=== PATIENT | male | born 1975 | race African-American/Black ===

== ENCOUNTER 2018-07-13 11:23 | Emergency (ER) | payer SELFPAY ==
--- NOTE | 2018-07-13 11:46 | ED ---
HPI Diabetic - HPI Summary HPI Summary: A 43 y/o M with DM type I presents to ED with c/o elevated glucose for unknown duration. He has not had his insulin in approximately a week. Per friend, pt is from [place] and arrived in [place] two days ago. He was having difficulty with his medical care there, so he came to [place]. Associated sx: n/v, dry mouth, frequency, excess hunger. He denies fever, pain, pedal edema. He has a cough but has had a cold recently that is almost resolved. - History Of Current Complaint Chief Complaint: EDDiabeticProb Time Seen by Provider: 07/13/18 11:36 Hx Obtained From: Patient, Family/Tub Puller Onset/Duration: Still Present Timing: Constant Severity Initially: Moderate Severity Currently: Moderate Character: Lethargic Aggravating: Non-compliant Associated Signs & Symptoms: Nausea, Polyphagia, Vomiting Related History: DM I - Allergies/Home Medications Allergies/Adverse Reactions: Allergies Allergy/AdvReac Type Severity Reaction Status Date / Time No Known Allergies Allergy Verified 07/13/18 11:30 PMH/Surg Hx/FS Hx/Imm Hx Previously Healthy: No Endocrine/Hematology History: Reports: Hx Diabetes Denies: Hx Anticoagulant Therapy, Hx Thyroid Disease Cardiovascular History: Denies: Hx Hypertension, Hx Pacemaker/ICD Respiratory History: Denies: Hx Asthma, Hx Chronic Obstructive Pulmonary Disease (COPD) History: Denies: Hx Renal Disease Musculoskeletal History: Reports: Other Musculoskeletal History - TRAUMA Neurological History: Reports: Other Neuro Impairments/Disorders - HEAD TRAUM Denies: Hx Dementia, Hx Seizures Psychiatric History: Denies: Hx Substance Abuse - Immunization History Date of Tetanus Vaccine: 02/04/2012 Infectious Disease History: No Infectious Disease History: Denies: Hx Hepatitis, Hx Human Immunodeficiency Virus (HIV), Traveled Outside the [place] in Last 30 Days - Family History Known Family History: Positive: Hypertension, Diabetes - Social History Occupation: Unemployed Lives: Dormitory/Roommates - friend Alcohol Use: Intoxiated Alcohol Amount: FORMER Hx Substance Use: No Substance Use Type: Reports: None Substance Use Comment - Amount & Last Used: crack, suspected today per police Hx Tobacco Use: Yes Smoking Status (MU): Heavy Every Day Tobacco Smoker Review of Systems Positive: Other - pos: lethargic. Negative: Fever ENT: Other - pos: dry mouth Positive: Vomiting, Nausea, Other - excess hunger Positive: frequency Negative: Edema All Other Systems Reviewed And Are Negative: Yes Physical Exam - Summary Physical Exam Summary: VITAL SIGNS: Reviewed. GENERAL: Patient is a well-developed and nourished MALE who is lying comfortable in the stretcher. Patient is not in any acute respiratory distress. HEAD AND FACE: No signs of trauma. No ecchymosis, hematomas or skull depressions. No sinus tenderness. EYES: PERRLA, EOMI x 2, No injected conjunctiva, no nystagmus. EARS: Hearing grossly intact. Ear canals and tympanic membranes are within normal limits. MOUTH: Dry oral mucosa. NECK: Supple, trachea is midline, no adenopathy, no JVD, no carotid bruit, no c- spine tenderness, neck with full ROM. CHEST: Symmetric, no tenderness at palpation LUNGS: Clear to auscultation bilaterally. No wheezing or crackles. CVS: Regular rate and rhythm, S1 and S2 present, no murmurs or gallops appreciated. ABDOMEN: Soft, non-tender. No signs of distention. No rebound, no guarding, and no masses palpated. Bowel sounds are normal. EXTREMITIES: FROM in all major joints, no edema, no cyanosis or clubbing. NEURO: Alert and oriented x 3. No acute neurological deficits. Speech is normal and follows commands. SKIN: Dry and warm Triage Information Reviewed: Yes Vital Signs On Initial Exam: Initial Vitals Temp Pulse Resp BP Pulse Ox 97.5 F 111 20 103/74 98 07/13/18 11:26 07/13/18 11:26 07/13/18 11:26 07/13/18 11:26 07/13/18 11:26 Vital Signs Reviewed: Yes Diagnostics - Vital Signs Vital Signs Temp Pulse Resp BP Pulse Ox 07/13/18 11:26 97.5 F 111 20 103/74 98 - Laboratory Result Diagrams: 07/13/18 12:21 07/13/18 12:21 Lab Statement: Any lab studies that have been ordered have been reviewed, and results considered in the medical decision making process. - Radiology CXR Radiology Interpretation Completed By: Radiologist Summary of Radiographic Findings: IMPRESSION: #. Stigmata of probable obstructive lung disease. No acute pulmonary or cardiac process evident. ED provider has reviewed this report. - EKG 1217 Cardiac Rate: NL - 82 bpm EKG Rhythm: Sinus Rhythm Summary of EKG Findings: No ST elevation, nml axis. Re-Evaluation - Re-Evaluation 1 Re-Evaluation Time: 14:22 Change: Improved Comment: POC glucose is 154. Pt is feeling better. Diabetic Course/Dx - Course Assessment/Plan: This patient is a 43-year-old male who presents to the emergency department with a chief complaint of having high blood sugars. He reports that he is supposed to be taking insulin however he is not taking any medications at this time. Blood work without any significant abnormality except for glucose of 404. In the ED course the patient was given IV fluids approximately 2 L and 12 units of insulin. At this time, rechecked the blood sugar and it is only 154. The patient is feeling better. He will be discharged home with follow-up with primary care physician. He is going to be referred to [facility]. He will be given a prescription for Lantus 30 units daily. I discussed all the findings and test results with the patient. Patient was instructed to return to the emergency room immediately if any of the symptoms return or worsens. Plan of care was discussed with the patient and understands and agrees. All questions were answered to patient satisfaction. There were no further complaints or concerns. Lung exam before discharge: CTA B/ L. Good air exchange. No wheezing or crackles heard. CVS: S1 and S2 present. No murmurs appreciated. Patient is alert and oriented x 3. Patient is hemodynamically stable. Patient will be discharged home with follow up PCP in the next 2-3 days. - Diagnoses Differential Dx: Diabetic Ketoacidosis, Gestational Diabetes, Hyperglycemia Provider Diagnoses: Uncontrolled diabetes mellitus Discharge - Sign-Out/Discharge Documenting (check all that apply): Patient Departure - D/C Patient Received Moderate/Deep Sedation with Procedure: No - Discharge Plan Condition: Stable Disposition: HOME Prescriptions: Lantus(*) 30 units SUBCUT DAILY #1 vial Patient Education Materials: Insulin Glargine (By injection), Diabetic Hyperglycemia (ED) Referrals: Mark Anthony Burris MD [Primary Care Provider] - [facility] [Outside] - 1 Day Additional Instructions: Follow up at [facility] tomorrow. RETURN TO THE ED FOR ANY WORSENING OR NEW SYMPTOMS. - Billing Disposition and Condition Condition: STABLE Disposition: Home - Attestation Statements Document Initiated by Scribe: Yes Documenting Scribe: Sherrill Morales Provider For Whom Julianna is Documenting (Include Credential): Dr. Shayne Parker MD Scribe Attestation: I, Sherrill Morales, scribed for Dr. Shayne Parker MD on 07/13/18 at 1831. Scribe Documentation Reviewed: Yes Provider Attestation: The documentation as recorded by the Sherrill redman accurately reflects the service I personally performed and the decisions made by me, Dr. Shayne Parker MD Status of Scribe Document: Viewed
[2018-07-13 12:31] LABS: ABS Basophils 0.1 10^3/ul (0-0.2); ABS Eosinophils 0.1 10^3/ul (0-0.6); ABS Lymphocytes 1.5 10^3/ul (1.0-4.8); ABS Monocytes 0.4 10^3/ul (0-0.8); ABS Neutrophils 4.6 10^3/ul (1.5-7.7); ABS Nucleated RBC 0 10^3/ul; Eosinophil % 0.8 %; Hematocrit 51 % (42-52); Hemoglobin 16.7 g/dl (14.0-18.0); Mean Corpuscular HGB Conc 33 g/dl (31-36); Mean Corpuscular Hemoglobin 28 pg (27-31); Mean Corpuscular Volume 86 fL (80-94); Mean Platelet Volume 8.6 fL (7.4-10.4); Nucleated Red Blood Cells % 0; Platelet Count 278 10^3/ul (150-450); Red Blood Count 5.94 10^6/ul (4.00-5.40); Red Cell Distribution Width 16 % (10.5-15); White Blood Count 6.7 10^3/ul (3.5-10.8)
[2018-07-13 12:48] LABS: ALT 36 U/L (7-52); AST 17 U/L (13-39); Albumin 4.2 g/dL (3.2-5.2); Albumin/Globulin Ratio 1.4 (1-3); Alkaline Phosphatase 101 U/L (34-104); Anion Gap 8 mmol/L (2-11); BUN/Creatinine Ratio 14.8 (8-20); Blood Urea Nitrogen 16 mg/dL (6-24); C Reactive Protein 5.41 mg/L (<8.01); CO2 Carbon Dioxide 29 mmol/L (22-32); Calcium 9.7 mg/dL (8.6-10.3); Chloride 99 mmol/L (101-111); Creatine Kinase 149 U/L (10-223); EGFR African American 89.9 (>60); EGFR Non-African American 74.3 (>60); Globulin 3.1 g/dL (2-4); Glucose 404 mg/dL (70-100); Magnesium 2.2 mg/dL (1.9-2.7); Potassium 4.2 mmol/L (3.5-5.0); Sodium 136 mmol/L (135-145); Total Protein 7.3 g/dL (6.4-8.9)
[2018-07-13] MEDS ORDERED: Insulin REGULAR(*) 1 UNITS UNIT IV PUSH ONE (13:16)
[2018-07-13] MEDS: NS 0.9% 1000 ML** 2,000 ML IV ONE (13:27)
[2018-07-13 13:32] LABS: Alcohol < 10 mg/dL (<10)
[2018-07-13 14:46] VITALS: BP 106/70
== END 2018-07-13 14:46 | disposition home or self-care (01) ==
LOC: ED 11:23
DX: E10.65 Type 1 diabetes mellitus with hyperglycemia (principal); Z79.4 Long term (current) use of insulin; R11.2 Nausea with vomiting, unspecified; R63.2 Polyphagia; F17.200 Nicotine dependence, unspecified, uncomplicated
CPT/HCPCS: 36415; 71045; 80053; 80320; 82550; 83605; 83735; 85025; 86140; 93005; 96361; 96374; 99283; G0480

== ENCOUNTER 2018-08-25 00:33 | Emergency (ER) | payer MEDICAID ==
[2018-08-25] MEDS ORDERED: NS 0.9% 1000 ML** 2,000 ML IV ONE (01:21)
--- NOTE | 2018-08-25 01:22 | ED ---
HPI Diabetic - HPI Summary HPI Summary: A 43 y/o M presents to ED with c/o elevated blood sugars onset 1-2 weeks ago. Pt was living in [place] for three years and returned to [place] recently. He is currently homeless and also requesting a social work consult, as he's having difficulty getting into the long term. He has been out of his insulin for "a week or two." Associated sx: frequency, fatigue, dry mouth. - History Of Current Complaint Chief Complaint: EDDiabeticProb Time Seen by Provider: 08/25/18 01:17 Hx Obtained From: Patient Onset/Duration: Gradual Onset, Lasting Weeks, Still Present Timing: Constant Severity Initially: Moderate Severity Currently: Severe Character: Lethargic Aggravating: Non-compliant - Allergies/Home Medications Allergies/Adverse Reactions: Allergies Allergy/AdvReac Type Severity Reaction Status Date / Time No Known Allergies Allergy Verified 08/25/18 00:45 PMH/Surg Hx/FS Hx/Imm Hx Previously Healthy: No Endocrine/Hematology History: Reports: Hx Diabetes Denies: Hx Anticoagulant Therapy, Hx Thyroid Disease Cardiovascular History: Denies: Hx Hypertension, Hx Pacemaker/ICD Respiratory History: Denies: Hx Asthma, Hx Chronic Obstructive Pulmonary Disease (COPD) History: Denies: Hx Renal Disease Musculoskeletal History: Reports: Other Musculoskeletal History - TRAUMA Neurological History: Reports: Other Neuro Impairments/Disorders - HEAD TRAUM Denies: Hx Dementia, Hx Seizures Psychiatric History: Denies: Hx Substance Abuse - Immunization History Date of Tetanus Vaccine: 02/04/2012 Infectious Disease History: No Infectious Disease History: Denies: Hx Hepatitis, Hx Human Immunodeficiency Virus (HIV), Traveled Outside the in Last 30 Days - Family History Known Family History: Positive: Hypertension, Diabetes - Social History Occupation: Unemployed Lives: Alone - homeless Alcohol Use: Intoxiated Alcohol Amount: FORMER Hx Substance Use: No Substance Use Type: Reports: None Substance Use Comment - Amount & Last Used: crack, suspected today per police Hx Tobacco Use: Yes Smoking Status (MU): Heavy Every Day Tobacco Smoker Review of Systems Positive: Fatigue, Other - pos: elevated blood sugar Positive: Other - pos: dry mouth Positive: frequency All Other Systems Reviewed And Are Negative: Yes Physical Exam - Summary Physical Exam Summary: Appearance: Well-appearing, Well-nourished, lying in bed comfortable Skin: Warm, dry, no obvious rash Eyes: sclera anicteric, no conjunctival pallor ENT: mucous membranes moist Neck: deferred Respiratory: No signs of respiratory distress Cardiovascular: Appears well perfused, pulses are nml Abdomen: deferred Musculoskeletal: Moving all 4 extremities without obvious discomfort Neurological: Awake and alert, mentation is normal, speech is fluent and appropriate Psychiatric: affect is normal, does not appear anxious or depressed Triage Information Reviewed: Yes Vital Signs On Initial Exam: Initial Vitals Temp Pulse Resp BP Pulse Ox 98.2 F 101 18 124/82 96 08/25/18 00:43 08/25/18 00:43 08/25/18 00:43 08/25/18 00:43 08/25/18 00:43 Vital Signs Reviewed: Yes Diagnostics - Vital Signs Vital Signs Temp Pulse Resp BP Pulse Ox 08/25/18 00:43 98.2 F 101 18 124/82 96 - Laboratory Result Diagrams: 08/25/18 01:30 08/25/18 01:30 Lab Statement: Any lab studies that have been ordered have been reviewed, and results considered in the medical decision making process. Diabetic Course/Dx - Course Course Of Treatment: Pt is a 43 y/o M presenting with elevated blood sugars onset 1-2 weeks ago. He was living in [place] and returned to [place] recently but is currently homeless and requesting a social work consult. He has been out of his insulin for "a week or two.". Lab work shows Glucose: 348. Pt will be discharged. Discharge - Sign-Out/Discharge Documenting (check all that apply): Patient Departure - DC Patient Received Moderate/Deep Sedation with Procedure: No - Discharge Plan Condition: Good Disposition: HOME Prescriptions: metFORMIN* [Glucophage 500 MG TAB *] 500 mg PO BID #60 tab Referrals: [facility] [Outside] Mark Anthony Burris MD [Primary Care Provider] - Additional Instructions: Call or stop in at the [facility]. They have doctors and legal aid who can help with your diabetes. Your blood sugar was high tonight but not dangerously so in the short term, but over time elevated sugar will damage your body. I am not sure you will need insulin going forward, so I have prescribed metformin instead. You may end up needing to be back on insulin though. - Attestation Statements Document Initiated by Scribe: Yes Documenting Scribe: [facility] Provider For Whom Scribe is Documenting (Include Credential): Dr. Yonas Dorantes MD Scribe Attestation: I, Sherrill Morales, scribed for Dr. Yonas Dorantes MD on 08/25/18 at 0526.
[2018-08-25 01:42] LABS: ABS Basophils 0.1 10^3/ul (0-0.2); ABS Eosinophils 0.2 10^3/ul (0-0.6); ABS Lymphocytes 2.2 10^3/ul (1.0-4.8); ABS Monocytes 0.4 10^3/ul (0-0.8); ABS Nucleated RBC 0 10^3/ul; Eosinophil % 2.8 %; Hematocrit 42 % (36-46); Hemoglobin 13.8 g/dL (14.0-18.0); Lymphocyte % 38.1 %; Mean Corpuscular HGB Conc 33 g/dL (31-36); Mean Corpuscular Hemoglobin 28 pg (27-31); Mean Corpuscular Volume 86 fL (80-94); Mean Platelet Volume 8.1 fL (7.4-10.4); Nucleated Red Blood Cells % 0.1; Platelet Count 242 10^3/uL (150-450); Red Blood Count 4.85 10^6 /uL (4.18-5.48); Red Cell Distribution Width 16 % (10.5-15); White Blood Count 5.8 10^3/uL (3.5-10.8)
[2018-08-25 01:58] LABS: BUN/Creatinine Ratio 10.7 (8-20); Calcium 8.7 mg/dL (8.6-10.3); EGFR African American 94.9 (>60); EGFR Non-African American 78.5 (>60)
[2018-08-25 02:21] LABS: Potassium 3.6 mmol/L (3.5-5.0)
[2018-08-25] MEDS ORDERED: metFORMIN* 500 MG TAB PO ONE (04:07)
[2018-08-25] MEDS ORDERED: Insulin GLARGINE(*) 1 UNITS UNIT SUBCUT ONE (04:08)
[2018-08-25 09:13] VITALS: BP 111/73
== END 2018-08-25 09:00 | disposition home or self-care (01) ==
LOC: ED 00:33
DX: E11.65 Type 2 diabetes mellitus with hyperglycemia (principal); Z59.0 Homelessness; Z72.0 Tobacco use; Z79.4 Long term (current) use of insulin
CPT/HCPCS: 36415; 80048; 85025; 96360; 96361; 99283; A9270-GY

== ENCOUNTER 2019-03-22 20:42 | Emergency (ER) | payer MEDICAID, OTHER ==
[2019-03-22] MEDS ORDERED: NS 0.9% 1000 ML** 1,000 ML IV ONE (20:57)
--- NOTE | 2019-03-22 21:22 | ED ---
Substance Abuse/Use - HPI Summary HPI Summary: This pt is a 44 Y/O M presenting to [facility] as a 941, brought In by EMS, due to alcohol intoxication. Per EMS the pt was found in someone elses house after drinking two pitchers of beer. This pt is a level 5 caveat due to his level of intoxication and being a poor historian. - History Of Current Complaint Chief Complaint: EDSubstanceAbuse Stated Complaint: ETOH PER EMS Time Seen by Provider: 03/22/19 20:44 Hx Obtained From: Patient, EMS Hx From Patient Unobtainable Due To: Altered Mental Status - Pt is a level 5 caveat due to level of intoxication and being a poor historian Severity Currently: Severe Character: Lethargic Associated Signs And Symptoms: Altered Mental Status - Allergies/Home Medications Allergies/Adverse Reactions: Allergies Allergy/AdvReac Type Severity Reaction Status Date / Time No Known Allergies Allergy Verified 08/25/18 00:45 PMH/Surg Hx/FS Hx/Imm Hx Previously Healthy: Yes Endocrine/Hematology History: Reports: Hx Diabetes Denies: Hx Anticoagulant Therapy, Hx Thyroid Disease Cardiovascular History: Denies: Hx Hypertension, Hx Pacemaker/ICD Respiratory History: Denies: Hx Asthma, Hx Chronic Obstructive Pulmonary Disease (COPD) History: Denies: Hx Renal Disease Musculoskeletal History: Reports: Other Musculoskeletal History - TRAUMA Neurological History: Reports: Other Neuro Impairments/Disorders - HEAD TRAUM Denies: Hx Dementia, Hx Seizures Psychiatric History: Denies: Hx Substance Abuse - Immunization History Date of Tetanus Vaccine: 02/04/2012 Infectious Disease History: No Infectious Disease History: Denies: Hx Hepatitis, Hx Human Immunodeficiency Virus (HIV), Traveled Outside the US in Last 30 Days - Family History Known Family History: Positive: Hypertension, Diabetes - Social History Occupation: Employed Full-time Lives: Alone Alcohol Use: unknown frequency Alcohol Amount: today 2 pitchers of beer Hx Substance Use: No Substance Use Type: Reports: Other Substance Use Comment - Amount & Last Used: hx of crack, unknown current use Hx Tobacco Use: Yes Smoking Status (MU): Heavy Every Day Tobacco Smoker Review of Systems - ROS Summary Review of Systems Summary: A full ROS was unobtainable due to the pt being a level 5 caveat due to his level of intoxication and being a poor historian. Positive: Other - states that he 'drank too much' All Other Systems Reviewed And Are Negative: No Physical Exam - Summary Physical Exam Summary: General: Well-developed, Well-nourished male. Sleepy, arouses to voice Slurred speech, obviously intoxicated, no acute distress. HEENT: Normocephalic, Atraumatic. Eyes: Conjuctiva normal, PERRL. Ears: TMs within normal limits. Nares: (-) discharge, (-) erythema. Oropharynx: Clear, mucous membranes moist, (-) exudates. Neck: Soft, FROM, (-) lymphadenopathy, (-) thyromegaly, (-) JVD. Cardiovascular: Normal sinus rhythm, (-) murmur. Lungs: Clear to auscultation bilaterally (-) wheezes, (-) rales, (-) rhonchi. Abdomen: Soft, non-tender, non-distended, (-) organomegaly, normal bowel sounds. Back: (-) CVA tenderness Extremities: No edema. Skin: Warm, dry, (-) rash. Neuro: Alert and oriented x3, no focal deficits, moves all extremities equally, unable to asses Psychiatric: Mood normal, affect normal, cooperative, unable to asses otherwise A full PE was unobtainable due to the pt being a level 5 caveat due to his level of intoxication and being a poor historian. Triage Information Reviewed: Yes Vital Signs On Initial Exam: Initial Vitals Temp Pulse Resp BP Pulse Ox 97.5 F 98 15 116/69 97 03/22/19 20:43 03/22/19 20:43 03/22/19 20:43 03/22/19 20:43 03/22/19 20:43 Vital Signs Reviewed: Yes Completion Of Physical Exam Limited Due To: Altered Mental Status - A full ROS was unobtainable due to the pt being a level 5 caveat due to his level of intoxication and being a poor historian., Level 5 Procedures - Sedation Patient Received Moderate/Deep Sedation with Procedure: No Diagnostics - Vital Signs Vital Signs Temp Pulse Resp BP Pulse Ox 03/22/19 20:43 97.5 F 98 15 116/69 97 - Laboratory Result Diagrams: 03/22/19 21:54 03/22/19 21:26 Lab Statement: Any lab studies that have been ordered have been reviewed, and results considered in the medical decision making process. - CT Brain CT CT Interpretation Completed By: Radiologist Summary of CT Findings: No acute intracranial pathologies. ED physician has reviewed this report. Re-Evaluation - Re-Evaluation First Eval Re-Evaluation Time: 07:35 Change: Improved Comment: At 07:35, patient is alert and oriented x3 and is sober. Normal cognition and patient is drinking fluids without nausea or vomiting. Course/Dx - Course Course Of Treatment: This pt is a 44 Y/O M presenting to [facility] as a 941, brought In by EMS, due to alcohol intoxication. Per EMS the pt was found in someone elses house after drinking two pitchers of beer. This pt is a level 5 caveat due to his level of intoxication and being a poor historian. This pt is a sign out to Dr. Parker from Dr. Amaya at shift change 0700 03/23/19 pending sobriety and disposition. - Diagnoses Provider Diagnoses: Alcohol intoxication Discharge ED - Sign-Out/Discharge Documenting (check all that apply): Sign-Out Patient Signing out patient TO: Shayne Parker - Discharge Plan Condition: Stable Disposition: HOME Patient Education Materials: Alcohol Intoxication (ED) Referrals: Mark Anthony Burris MD [Primary Care Provider] - Additional Instructions: FOLLOW UP WITH YOUR PRIMARY CARE PROVIDER WITHIN 3 DAYS. RETURN TO THE ED FOR ANY WORSENING OR NEW SYMPTOMS. - Billing Disposition and Condition Condition: STABLE Disposition: Home - Attestation Statements Document Initiated by Julianna: Yes Documenting Scribe: George Hoff Provider For Whom Julianna is Documenting (Include Credential): Savannah Amaya MD Scribe Attestation: George Herrera scribed for Savannah Amaya MD on 03/23/19 at 1936. Scribe Documentation Reviewed: Yes Provider Attestation: The documentation as recorded by the George redman accurately reflects the service I personally performed and the decisions made by me, Savannah Amaya MD Status of Scribe Document: Viewed
[2019-03-22 22:02] LABS: ABS Basophils 0.1 10^3/ul (0-0.2); ABS Lymphocytes 2.4 10^3/ul (1.0-4.8); ABS Monocytes 0.3 10^3/ul (0-0.8); ABS Neutrophils 2.6 10^3/ul (1.5-7.7); Eosinophil % 0.7 %; Hematocrit 46 % (42-52); Hemoglobin 15.2 g/dL (14.0-18.0); Lymphocyte % 44.5 %; Mean Corpuscular HGB Conc 33 g/dL (31-36); Mean Corpuscular Hemoglobin 30 pg (27-31); Mean Corpuscular Volume 90 fL (80-94); Mean Platelet Volume 7.8 fL (7.4-10.4); Nucleated Red Blood Cells % 0.2; Platelet Count 280 10^3/uL (150-450); Red Blood Count 5.12 10^6 /uL (4.18-5.48); Red Cell Distribution Width 16 % (10-15); White Blood Count 5.4 10^3/uL (3.5-10.8)
[2019-03-22 22:03] LABS: Albumin 3.9 g/dL (3.2-5.2); CO2 Carbon Dioxide 16 mmol/L (22-32); Calcium 8.7 mg/dL (8.6-10.3); Chloride 107 mmol/L (101-111); Sodium 138 mmol/L (135-145)
[2019-03-22 22:07] LABS: ALT 37 U/L (7-52); Albumin/Globulin Ratio 1.5 (1-3); Alkaline Phosphatase 81 U/L (34-104); BUN/Creatinine Ratio 12.9 (8-20); Blood Urea Nitrogen 16 mg/dL (6-24); EGFR African American 76.3 (>60); Globulin 2.6 g/dL (2-4); Glucose 193 mg/dL (70-100); Total Protein 6.5 g/dL (6.4-8.9)
[2019-03-22 22:11] LABS: Acetaminophen < 15 mcg/mL; Alcohol 297 mg/dL (<10); Salicylate < 2.50 mg/dL (<30)
[2019-03-22 22:49] LABS: AST 34 U/L (13-39); Anion Gap 15 mmol/L (2-11)
--- NOTE | 2019-03-23 07:21 | ED ---
Progress - Progress Note Progress Note: Patient is a sign-out out at 07:00 on 03/23/[address] Savannah Amaya MD to Dr. Shayne Parker MD at shift change, pending sobriety and disposition. Patient will be discharged with a diagnosis of alcohol intoxication. Follow up with PCP in 3 days. Re-Evaluation - Re-Evaluation First Eval Re-Evaluation Time: 07:35 Change: Improved Comment: At 07:35, patient is alert and oriented x3 and is sober. Normal cognition and patient is drinking fluids without nausea or vomiting. Course/Dx - Course Course Of Treatment: This patient was signed by Dr. Amaya at shift change. She reports that the patient will intoxication and the patient was awaiting to become sober. At approximately 7:35AM the patient is alert and oriented 3. The patient is sober, he is ambulating with a steady walk and he is drinking fluids without any nausea and vomiting. The patient will be discharged home with follow-up with primary care physician. Patient is hemodynamically stable alert oriented 3. - Diagnoses Provider Diagnoses: Alcohol intoxication Discharge ED - Sign-Out/Discharge Documenting (check all that apply): Patient Departure - Discharge, Receiving Sign-Out Receiving patient FROM: Savannah Amaya - Patient is a sign-out out at 07:[address] Savannah Amaya MD to Dr. Shayne Parker MD at shift change, pending sobriety and disposition. - Discharge Plan Condition: Stable Disposition: HOME Patient Education Materials: Alcohol Intoxication (ED) Referrals: Mark Anthony Burris MD [Primary Care Provider] - Additional Instructions: FOLLOW UP WITH YOUR PRIMARY CARE PROVIDER WITHIN 3 DAYS. RETURN TO THE ED FOR ANY WORSENING OR NEW SYMPTOMS. - Billing Disposition and Condition Condition: STABLE Disposition: Home - Attestation Statements Document Initiated by Scribe: Yes Documenting Scribe: Dionne Li Provider For Whom Julianna is Documenting (Include Credential): Shayne Parker MD Scribe Attestation: Dionne Herrera, scribed for Shayne Parker MD on 03/23/19 at 0839. Scribe Documentation Reviewed: Yes Provider Attestation: The documentation as recorded by the Dionne redman accurately reflects the service I personally performed and the decisions made by me, Shayne Parker MD Status of Scribe Document: Viewed
[2019-03-23 08:31] VITALS: BP 122/75
== END 2019-03-23 08:26 | disposition home or self-care (01) ==
LOC: ED 20:42
DX: F10.129 Alcohol abuse with intoxication, unspecified (principal); E11.9 Type 2 diabetes mellitus without complications; F17.210 Nicotine dependence, cigarettes, uncomplicated; Y90.8 Blood alcohol level of 240 mg/100 ml or more
CPT/HCPCS: 36415; 70450; 80053; 80320; 80329; 83605; 85025; 99283; G0480

== ENCOUNTER 2019-05-12 10:53 | Emergency (ER) | payer OTHER ==
[2019-05-12 11:20] VITALS: BP 141/85
--- NOTE | 2019-05-12 11:42 | UC ---
Shoulder Pain HPI - HPI Summary HPI Summary: SLIPPED AND FELL 5 DAYS AGO ON 05/07/2019 LANDING ON HIS RIGHT SHOULDER. STATES "MY BONE CAME OUT OF PLACE ". HE WENT TO SEE NHUNG FLOWER WITH ORTHOPEDIC SURGERY IN [place] AND PER PT REPORT HE WAS TOLD HE JUST NEEDED TO WEAR A SLING AND DO SOME PHYSICAL THERAPY. HE WAS GIVEN TRAMADOL WHICH HE STATES IS NOT HELPING AT ALL. HE COMES IN TODAY SEEKING A SECOND OPINION. - History of Current Complaint Chief Complaint: UCUpperExtremity Stated Complaint: SHOULDER INJURY Time Seen by Provider: 05/12/19 11:24 Hx Obtained From: Patient Onset/Duration: Sudden Onset, Lasting Days, Still Present Timing: Constant Severity Initially: Moderate Severity Currently: Moderate Location Of Pain: Is Discrete @ - RIGHT SHOULDER Pain Intensity: 9 Pain Scale Used: 0-10 Numeric Character: Sharp Aggravating Factor(s): Movement Alleviating Factor(s): Rest Related History: Dominant Hand Right - Allergies/Home Medications Allergies/Adverse Reactions: Allergies Allergy/AdvReac Type Severity Reaction Status Date / Time No Known Allergies Allergy Verified 05/12/19 11:20 Home Medications: Home Medications Acetaminophen TAB* [Tylenol TAB*] 650 mg PO Q4H PRN 05/12/19 [History Confirmed 05/12/19] Ibuprofen TAB* [Advil TAB*] 200 mg PO Q6H PRN 05/12/19 [History Confirmed ] Insulin Glargine,Hum.rec.anlog [Basaglar Kwikpen U-100] 38 unit SC BEDTIME 05/12 [History Confirmed 05/12/19] PMH/Surg Hx/FS Hx/Imm Hx Endocrine History: Diabetes - TYPE I Other History Of: Negative For: Anticoagulant Therapy - Surgical History Surgical History: None - Family History Known Family History: Positive: Hypertension, Diabetes - Social History Alcohol Use: None Alcohol Amount: states clean for 30 days Substance Use Type: Marijuana Substance Use Comment - Amount & Last Used: hx of crack, unknown current use Smoking Status (MU): Heavy Every Day Tobacco Smoker Amount Used/How Often: 1/2 PPD Household Exposure Type: Cigarettes Review of Systems All Other Systems Reviewed And Are Negative: Yes Constitutional: Positive: Negative Respiratory: Positive: Negative Cardiovascular: Positive: Negative Gastrointestinal: Positive: Negative Musculoskeletal: Positive: Arthralgia, Decreased ROM Physical Exam Triage Information Reviewed: Yes Appearance: Well-Appearing, No Pain Distress, Well-Nourished Vital Signs: Initial Vital Signs Temp 97.7 F 05/12/19 11:15 Pulse 90 05/12/19 11:15 Resp 16 05/12/19 11:15 BP 141/85 05/12/19 11:15 Pulse Ox 98 05/12/19 11:15 Vital Signs Reviewed: Yes Eyes: Positive: Conjunctiva Clear ENT: Positive: Hearing grossly normal Neck: Positive: Supple Respiratory: Positive: No respiratory distress, No accessory muscle use Cardiovascular: Positive: Pulses Normal Abdomen Description: Positive: Soft Musculoskeletal: Positive: No Edema, ROM Limited @ - RIGHT SHOULDER, Other: - STEP OFF RIGHT SHOULDER WITH EXQUISITE TENDERNESS OVER CLAVICLE Neurological: Positive: Alert Psychological: Positive: Age Appropriate Behavior Skin: Negative: Rashes Diagnostics - Radiology RIGHT SHOULDER XRAYS Radiology Interpretation Completed By: Radiologist Summary of Radiographic Findings: CORACOCLAVICULAR AND ACROMIOCLAVICULAR DIASTASIS SUGGESTIVE OF LIGAMENTOUS INJURY OF UNCERTAIN ACUITY. Shoulder Course/Dx - Course Course Of Treatment: PATIENT WITH A SIGNIFICANT AC JOINT SEPARATION SEEN ON X-RAY TODAY. DISCUSSED CASE WITH DR. WALTON WHO RECOMMENDS PATIENT BE SEEN TOMORROW. ON INITIAL INTERVIEW WITH THE PATIENT HE INDICATED THAT HE HAD NOT HAD ANY EVALUATION FOR THIS INJURY. AFTER FURTHER DISCUSSION IT WAS REVEALED THAT HE DID IN FACT SEEN AN ORTHOPEDIC OFFICE IN [place] ON 05/07/2019 AND WAS TOLD HE NEEDED PHYSICAL THERAPY AND A SHOULDER MOBILIZER ONLY. HE WAS GIVEN TRAMADOL WHICH HE STATES DOES NOT HELP. DUE TO THE LEVEL OF DISLOCATION I THINK A SECOND ORTHOPEDIC EVALUATION IS STILL WARRANTED. I DID CALL DR. WALTON OFFICE LEFT HIM A MESSAGE WITH THE NEW DETAILS STATED ABOVE. PATIENT REPORTS HIS HBA1C ABOUT 3 MONTHS AGO WAS GREATER THAN 12. - Differential Dx/Diagnosis Provider Diagnosis: Dislocation of right acromioclavicular joint Discharge ED - Sign-Out/Discharge Documenting (check all that apply): Patient Departure All imaging exams completed and their final reports reviewed: Yes - Discharge Plan Condition: Stable Disposition: HOME Prescriptions: HYDROcodone/ACETAMIN 5-325 MG* [[place] 5-325 TAB*] 1 tab PO Q6H PRN #12 tab MDD 4 PRN Reason: Pain Patient Education Materials: Acromioclavicular Separation (ED) Referrals: Mark Anthony Burris MD [Primary Care Provider] - Mark Anthony Walton MD [Medical Doctor] - 1 Day Additional Instructions: YOU HAVE A SIGNIFICANT AC JOINT SEPARATION. CALL DR. WALTON OFFICE TODAY TO SCHEDULE AN APPOINTMENT FOR TOMORROW. THEY ARE EXPECTING YOUR CALL. KEEP THE SHOULDER IMMOBILIZER ON AT ALL TIMES UNTIL SEEN. 800 MG OF IBUPROFEN EVERY 8 HOURS NEEDED FOR DISCOMFORT. HYDROCODONE FOR BREAKTHROUGH. - Billing Disposition and Condition Condition: STABLE Disposition: Home
--- OUTSIDE RECORDS SUMMARY | 2019-05-12 12:00 | XMS REPORT | Continuity of Care Document ---
:1975 Author Organization 0001 - S [facility] Address [address] [place] [address] Phone Care Team Providers Name Role Phone SALUD MORALES Unavailable Unavailable Allergies, Adverse Reactions, Alerts Substance Reaction Status No Known Allergies Active Medications Medication Instructions Dosage Effective Dates Status Comments (start - stop) Basaglar KwikPen inject 35units by - Active e10.65 U-100 Insulin 100 subcutaneous route unit/mL (3 mL) once as per insulin subcutaneous protocol qhs OneTouch Verio IQ use by as directed Not Available - Active e10.65 Meter kit route every day OneTouch Ultra Blue take 1 by 1 - Active Test Strip Subcutaneous route 3 times every day Admelog SoloStar inject by - Active e10.65 U-100 Insulin lispro subcutaneous route 100 unit/mL per prescriber's subcutaneous pen instructions. Insulin dosing requires individualization. MDD:66units lancets take 1 by 1 - Active Subcutaneous route 4 times every day BD Ultra-Fine Anne Marie to inject insulin - Active e10.65 Pen Needle 32 gauge 4x a day x " ProAir RespiClick 90 inhale 2 puff by 180 MCG - Active mcg/actuation breath inhalation route activated every 4 - 6 hours as needed Problems Condition Effective Dates (start - stop) Clinical Status Acute pain of right shoulder Injury of right shoulder, initial encounter Fall, initial encounter Elevated blood pressure reading Separation of right acromioclavicular joint, initial encounter Type 1 diabetes mellitus with hyperglycemia Encntr for general adult medical exam w/o abnormal findings Type 1 diabetes mellitus with hyperglycemia Recovering alcoholic in remission Body mass index (BMI) 24.0-24.9, adult - Tobacco use - Recovering alcoholic in remission Type 1 diabetes mellitus with hyperglycemia Procedures Procedure Date Procedure Unknown Results Test Name Date and Time Measure Units Reference Range Abnormal Flag Status Comments Unknown Encounters Encounter Practice Location Reason(s) Diagnoses Date Provider Providers Description For Visit Copied on Encounter 0001 - [facility] Dec-2 BERNARD BRANNON. S [facility], Ctr Ortho 3-[address] [place] [address] [facility], Street, [place], [place], [place] [address]. [place], [place], tel:[phone], [place] 2220 tel:[phone] [place] [address] Acute pain of Apr- FLIP HO. 4417 [facility], Walk-In right [address] [place] [address] shoulderInjury of [address] [place] [address] right shoulder, [place], [place], Street, initial [address]. [place] encounterFall, tel:[phone] [place], [place], initial [phone], [place] encounterElevated tel:[phone] blood pressure [phone] readingSeparation of right acromioclavicular joint, initial encounter 0001 - [facility] Dec-0 [facility] S Inc, Diabetes 4-201 JILLENE. [facility] 9 [address] [place], [address]. [address], [place] tel:[phone] tel:[phone] [place] [address] Type 1 diabetes Jeff- BOSTON S Inc, Diabetes mellitus with 8-201 VASILIY. [facility] hyperglycemia 9 [address] [place], [address]. [address], [place] tel:[phone] tel:[phone] [place] [address] Encntr for Jeff- VILLA S Inc, Primary general adult 2-201 NATALIE. Care medical exam w/o 9 [address] [place] [address], [address], Front findingsType 1 [facility] [place], [address]. [place], [place], with tel:[phone], [place] hyperglycemiaReco 3417 tel:[phone] vering alcoholic [phone] in remissionBody mass index (BMI) 24.0-24.9, adultTobacco use 0001 - S Recovering Jeff- VILLA [employer], Primary alcoholic in [place]. 33-57 Care remissionType 1 9 1290 [facility] Upper diabetes mellitus [address], Street, Front [place] [facility] [place], [address]. [place], [place], [phone], 3417 tel: [phone] Family History Family Member Diagnosis Age At Onset Mother Diabetes mellitus Immunizations Vaccine Date Status Comments Immunization Unknown Payers Payer name Insurance type Covered democrat ID Authorization(s) Zeferino Jiménez [id number] Social History Type Description Quantity Date Captured Comments Alcohol Use Details Unknown Caffeine Use Details Unknown Tobacco Use Status Smoking Status Unknown Vital Signs Date / Height Weight BMI Pulse Blood Temperature Respiratory Body Head BMI Time: Rate Pressure Rate Surface Circumference percentile Area Unknown Chief Complaint And Reason For Visit No information Reason For Referral Reason For Referral Unknown Plan Of Care Date Type Action Status Referral Ordered: ordered Xray Shoulder Complete (Must choose side) Right Appointment date/timeframe: Stat Referral Ordered: ordered Referrals: Diabetes Education Referral Ordered: ordered Referrals: Endocrinology, Diabetes and Metabolism. Evaluate and treat Referral Ordered: ordered Referrals: Ophthalmology. Evaluate and treat Date Type Problem Goal Intervention Status Start Date Unknown History Of Present Illness Encounter Date Complaint History Of Present Illness No information Functional Status Encounter Date Functional Assessment Cognitive Assessment Unknown Medications Administered Medication Instructions Dosage Effective Dates (start - stop) Status Comments Drug Treatment Unknown Instructions Date Instruction Additional Information Due to level of discomfort and pain, Related to Elevated blood pressure pt will go to [facility] for pain control reading Anew insulin scale is made & advised Related to Type 1 diabetes mellitus to send logs in weekly & to have labs with hyperglycemia done Risks and benefits of new medication discussed.To have eye exam AAP Last A1c: 11.5Next A1c due: 3 Related to Type 1 diabetes mellitus monthsFollow up with Endocrinology as with hyperglycemia scheduledPlease have a yearly eye exam by an retail support specialist.Please have a yearly foot exam.Continue your current medications.Look at your feet daily, and check for calluses or wounds, be aware of the increased chance of infection.Eat a balanced diet, avoiding concentrated sweets and sugary foods.Remember, diabetes increases your risk of heart disease, therefore good control of your sugar is important Continue treatment Related to Recovering alcoholic in remission Immunizations: Will await for medical Related to Encntr for general adult records from previous PCPLipid panel: medical exam w/o abnormal findings Reviewed Fasting glucose: Normal, repeat in 1 yearWear a seatbelt while driving Do not text and drive Avoid tobacco products Limit alcohol intakeRecommend yearly physical exams Referral placed to Endocrinology - we Related to Type 1 diabetes mellitus will call you with an appointment date with hyperglycemia and time Check your blood sugar regularly Continue current medications- we will call your pharmacy for medication names and dosagesFasting blood work ordered, please obtain on Saturday Schedule a follow up appointment for next Saturday Continue rehabilitation Out patient Related to Recovering alcoholic in rehabilitation recommended AA meetings remission also recommended Follow up in 1 week, labs prior to visit
--- OUTSIDE RECORDS SUMMARY | 2019-05-12 12:00 | XMS REPORT | Continuity of Care Document ---
:1975 Author Organization 0001 - S [facility] Address [address] [place] [address] Phone Care Team Providers Name Role Phone Provider, Default Unavailable Unavailable Allergies, Adverse Reactions, Alerts Substance [...] For Visit Copied on Encounter 0001 - Emergency Dec-2 Provider [facility], Default. . [address] [facility], [place], [address], [place] tel:[phone] 2019 [facility] Acute pain of Apr- FLIP HO. 4417 [facility], Walk-In right 9-201 [place] [facility] Center shoulderInjury 9 [facility] [place] of right [place], [place], Street, shoulder, [address]. [place] initial tel:[phone] [place], [place], encounterFall, [address], [place] initial tel:[phone] encounterElevate [id number] d blood pressure readingSeparatio n of right acromioclavicula r joint, initial encounter 0001 - [facility] Dec-0 COBY [facility], Diabetes 4-201 JILLENE. [facility] 9 [address] [place], [place], [address]. [address], [place] tel:[phone] tel:[phone] [place] [address] Type 1 diabetes Jeff- BOSTON [facility], Diabetes mellitus with 8-201 VASILIY. [facility] hyperglycemia 9 [address] [place], [place], [address]. [address], [place] tel:[phone] tel:[phone] [place] [address] Encntr for Oct- VILLA [facility], Primary general adult 2-201 NATALIE. -57 Care Upper medical exam w/o 9 1290 [place] Front abnormal [facility] Street, [place], Street FP findingsType 1 [facility] [place], [address]. [place], [place], mellitus with tel:[phone], [place] hyperglycemiaRec 3417 tel:[phone] overing [phone] alcoholic in remissionBody mass index (BMI) 24.0-24.9, adultTobacco use 2019 - [facility] Recovering Jeff-0 VILLA [employer], Primary alcoholic in [place]. 33-57 Care Upper remissionType 1 9 1290 Upper [place] Front diabetes [address], [address], Street FP mellitus [place], [address]. [place], [place], tel:[phone], 3414 tel:[phone] Family History Family Member Diagnosis Age At Onset Mother Diabetes mellitus Immunizations Vaccine Date Status Comments Immunization Unknown Payers Payer name Insurance type Covered green party ID Authorization(s) Zeferino Jiménez [id number] Social History Type Description Quantity Date Captured Comments Unknown Vital Signs Date / Height Weight [...] pressure pt will go to [facility] for pain control reading Anew [...] have a yearly eye exam by an electrical products engineer.Please have a yearly foot exam.Continue your current [...]
--- OUTSIDE RECORDS SUMMARY | 2019-05-12 12:00 | XMS REPORT | Continuity of Care Document ---
:1975 Author Organization 0001 - [facility] Address [address] [place] [address] Phone Care Team Providers Name Role Phone NATALIE DRIVER NP Unavailable Unavailable Allergies, Adverse Reactions, Alerts Substance [...] Copied on Encounter 0001 - Emergency Dec-2 VILLA [employer], 1 NATALIE. 57 [address] [place] [address], [address], [facility], [address]. [place], [place], tel:[phone], [place] 3417 tel:[phone] [place] [address] Acute pain of Apr- FLIP HO. 4417 [facility], Walk-In right [place] shoulderInjury 9 [facility] [place] of right [place], [place], [place], [facility], [address]. [employer] initial tel:[phone] [place], [place], encounterFall, [address], [place] initial tel:[phone] encounterElevate [id number] d blood pressure readingSeparatio n of right acromioclavicula r joint, initial encounter 0001 - [facility] Dec-0 COBY [employer], Diabetes 4-201 JILLENE. [facility] 57 Center 9 [address] [place], [address]. [address], [place] tel:[phone] tel:[phone] [place] [address] Type 1 diabetes Jeff- BOSTON [facility], Diabetes mellitus with 8201 VASILIY. [facility] Center hyperglycemia 9 93 [facility], [place], [address]. [address], [place] tel:[phone] tel:[phone] [place] [address] Encntr for Oct- VILLA [employer] [facility], Primary general adult 2-201 [place]. 57 Care Upper medical exam w/o 9 1290 [facility] abnormal [address], Street, Street FP findingsType 1 [facility] [place] [place], [address]. [place], [place], mellitus with tel:[phone], [place] hyperglycemiaRec 3417 tel:[phone] overing [phone] alcoholic in remissionBody mass index (BMI) 24.0-24.9, adultTobacco use 0001 - S Recovering Jeff-0 VILAL [facility] Inc, Primary alcoholic in [place]. 33-57 Care Upper remissionType 1 9 1290 [place] [address] diabetes [address], Street, Street FP mellitus [place], [address]. [place], [place], tel:[phone], [place] [address] tel:[phone] Family History Family Member Diagnosis Age At Onset Mother Diabetes mellitus Immunizations Vaccine Date Status Comments Immunization Unknown Payers Payer name Insurance type Covered democrat ID Authorization(s) Zeferino Jiménez [id number] Social History Type Description Quantity Date Captured [...] Elevated blood pressure pt will go to [facility] for pain control reading Anew insulin scale [...] have a yearly eye exam by an equine internship.Please have a yearly foot exam.Continue your current [...]
--- OUTSIDE RECORDS SUMMARY | 2019-05-12 12:00 | XMS REPORT | Continuity of Care Document ---
:1975 Author Organization 0001 - [facility] Address [address] [place] [address] Phone Care Team Providers Name Role Phone [facility], UNKNOWN Unavailable Unavailable Allergies, Adverse Reactions, Alerts Substance [...] Copied on Encounter 0001 - Emergency Dec-2 [facility] Inc, Room - [facility] 1-201 SERVICE 33-57 9 UNKNOWN. . [facility], [place], [address], [place] tel:[phone] [place] [address] Acute pain of FLIP HO. 4417 [facility], Walk-In right 9-201 [place] 33- Center shoulderInjury 9 [place], [place] of right [place], [place], Street, [facility], [address]. [place] initial tel:[phone] [place], [place], encounterFall, [address], [place] initial tel:[phone] encounterElevate [id number] d blood pressure readingSeparatio n of right acromioclavicula r joint, initial encounter 0001 - [facility] Dec-0 COBY [facility], Diabetes 4-201 JILLENE. [facility] Center 9 93 [place], [address]. [address], [place] tel:[phone] tel:[phone] [place] [address] Type 1 diabetes Oct- BOSTON [facility], Diabetes mellitus with 8-201 VASILIY. [facility] Center hyperglycemia 9 93 [place], [address]. [address], [place] tel:[phone] tel:[phone] [place] [address] Encntr for VILLA [facility], Primary general adult 2-201 NATALIE. -57 Care Upper medical exam w/o 9 1290 Upper [place] Front abnormal [facility] Street, [place], Street FP findingsType 1 [place], [address]. [place], [place], mellitus with tel:[phone], [place] hyperglycemiaRec 3417 tel:[phone] overing [phone] alcoholic in remissionBody mass index (BMI) 24.0-24.9, adultTobacco use 0001 - S Recovering Jeff-0 VILLA [employer], Primary alcoholic in [place]. 33-57 Care Upper remissionType 1 9 1290 [place] [address] diabetes [address], [address], Street FP mellitus [place], [address]. [place], [place], tel:[phone], 3417 tel:[phone] Family History Family Member Diagnosis Age At Onset Mother Diabetes mellitus Immunizations Vaccine Date Status Comments Immunization Unknown Payers Payer name Insurance type Covered democrat ID Authorization(s) Zeferino Jiménez [id number] Social History Type Description Quantity Date Captured [...] Elevated blood pressure pt will go to [facility] for pain control reading Anew insulin scale [...] have a yearly eye exam by an bumboater.Please have a yearly foot exam.Continue your current [...]
--- OUTSIDE RECORDS SUMMARY | 2019-05-12 12:00 | XMS REPORT | Continuity of Care Document ---
:1975 Author Organization 0001 - [facility] Address [address] [place] [address] Phone Care Team Providers Name Role Phone FLIP MEDIA/INSTRUCTIONAL DESIGNER, ELIZABETH Unavailable Unavailable Allergies, Adverse Reactions, Alerts Substance Reaction Status No Known Allergies Active Medications Medication Instructions Dosage Effective Dates Status Comments (start - stop) Basaglar KwikPen inject 35units by - Active e10.65 U-100 Insulin 100 subcutaneous route unit/mL (3 mL) once as per subcutaneous insulin protocol hs OneTouch Verio IQ use by as directed Not Available - Active e10.65 Meter kit route every day OneTouch Ultra take 1 by 1 - Active Blue Test Strip Subcutaneous route 3 times every day Admelog SoloStar inject by - Active e10.65 U-100 Insulin subcutaneous route lispro 100 unit/mL per prescriber's subcutaneous pen instructions. Insulin dosing requires individualization. MDD:66units lancets take 1 by 1 - Active Subcutaneous route 4 times every day BD Ultra-Fine Anne Marie to inject insulin - Active e10.65 Pen Needle 32 4x a day gauge x 5/32" ProAir RespiClick inhale 2 puff by 180 MCG - Active 90 mcg/actuation inhalation route breath activated every 4 - 6 hours as needed Percocet 5 mg-325 take 1 tablet by 1 tablet - No Longer mg tablet oral route every Active 4 hours as needed Problems Condition Effective Dates [...] Providers Description For Visit Copied on Encounter 2019 - [facility] FLIP HO. [facility], Radiology [address] 9 [facility] Walk-In [place], [place], Street, [address]. Clifford tel:[phone] [place], [place], [address], [place] tel:+ [phone] 0001 - [facility] Acute pain of FLIP HO. 4417 [employer] [facility], Walk-In right [place] -[address] [place] shoulderInjury 9 [facility] Simba of right [place], [place], Street, shoulder, [address]. Clifford initial tel:[phone] [place], [place], encounterFall, [phone], [place] initial tel:+ encounterElevate [phone] d blood pressure readingSeparatio n of right acromioclavicula r joint, initial encounter 0001 - [facility] Dec- [employer], Diabetes JILLENE. [facility] 57 Center 9 93 [place], [address]. [address], [place] tel:[phone] tel:[phone] 0001 - Med Surg Provider [employer], Default. . 57 9 [place], [address], [place] tel:[phone] 0001 - [facility] Type 1 diabetes [facility] [employer], Diabetes mellitus with VASILIY. [facility] 57 Center hyperglycemia 9 93 [place], [address]. [address], [place] tel:[phone] tel: [phone] 0001 - [facility] Encntr for Jeff[facility] [employer], Primary general adult [place]. [address] Care Upper medical exam w/o 9 [address] [place] [address], Street, Street FP findingsType 1 [place], [address]. [place], [place], mellitus with tel:[phone], [place] hyperglycemiaRec 3417 tel:[phone] overing [phone] alcoholic in remissionBody mass index (BMI) 24.0-24.9, adultTobacco use 0001 - S [facility] Jeff-0 [employer], Primary alcoholic in [place]. [address] Care Upper remissionType 1 9 [address] [place] [address] diabetes [address], Street, Street FP [place], [address]. [place], [place], tel:[phone], [place] 3417 tel:[phone] Family History Family Member Diagnosis Age At Onset Mother Diabetes mellitus Immunizations Vaccine Date Status Comments Immunization Unknown Payers Payer name Insurance type Covered constitution party ID Authorization(s) Zeferino Jiménez [id number] Social History Type Description Quantity Date Captured [...] Elevated blood pressure pt will go to [facility] for pain control reading Jeff-18-2019 Anew insulin scale is made & advised Related to Type 1 diabetes mellitus to send logs in weekly & to have labs with hyperglycemia done Risks and benefits of new medication discussed.To have eye exam AAP Last A1c: 11.5Next A1c due: 3 Related to Type 1 diabetes mellitus monthsFollow up with Endocrinology as with hyperglycemia scheduledPlease have a yearly eye exam by an shade cloth finisher.Please have a yearly foot exam.Continue your current [...]
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
--- OUTSIDE RECORDS SUMMARY | 2019-05-12 12:01 | XMS REPORT | Continuity of Care Document ---
:1975 External Reference #:[id number] Author Name BRENDEN Hays Address [address] [place] [address] Care Team Providers Name Role Phone Debi Mccormick NP - Family Care Team Information Chief Psychologist [phone] Problems Description No Information Available Social History Type Date Description Comments Sex Unknown ETOH Use Daily Tobacco Use Start: Unknown Marijuana Tobacco Use Start: Unknown Cigarettes Tobacco Use Reviewed: 05/07/19 Current Smoker Smoking Status Reviewed: 05/07/19 Current Smoker Allergies, Adverse Reactions, Alerts Description No Information Available Medications Active Medications SIG Qnty Indications Ordering Provider Date Tramadol HCL 1-2 by mouth 20tabs BRENDEN Hays 05/07/2019 50mg every 6 hours as Tablets needed for pain not to exceed 6 tabs in 24 hours Clonidine HCL Unknown 0.1mg Tablets Maicol Hong, 100Unit/ML Solution Pen-Inject Ondansetron Unknown 4mg Tablets Dispers Immunizations Description No Information Available Vital Signs Description No Information Available Results Description No Information Available Procedures Description No Information Available Medical Devices Description No Information Available Encounters Description No Information Available Assessments Date Code Description Provider 05/07/2019 S43.121A Dislocation of right acromioclavicular joint, BRENDEN Hays 100%-200% displacement, initial encounter Plan of Treatment Future Appointment(s):05/21/2019 3:00 pm - BRENDEN Hays at [facility] Main Jfbftb5405/07/2019 - MALIA Hays43.121A Dislocation of right acromioclavicular joint, 100%-200% displacement, initial encounterComments:We discussed options. He clearly understands. He is going to work on gentle range of motion. I gave him tramadol for pain. I will see him back in 2 weeks. He understands he will always have the increased prominence. Functional Status Description No Information Available Mental Status Description No Information Available Referrals Description No Information Available
== END 2019-05-12 12:15 | disposition home or self-care (01) ==
LOC: UCEAST 10:53
DX: S43.101A Unspecified dislocation of right acromioclavicular joint, initial encounter (principal); E10.9 Type 1 diabetes mellitus without complications; F17.210 Nicotine dependence, cigarettes, uncomplicated; Z79.4 Long term (current) use of insulin; W01.0XXA Fall on same level from slipping, tripping and stumbling without subsequent striking against object, initial encounter; Y92.9 Unspecified place or not applicable
CPT/HCPCS: 99212; G0463

== ENCOUNTER 2019-06-29 19:17 | Emergency (ER) | payer OTHER ==
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
--- OUTSIDE RECORDS SUMMARY | 2019-06-29 20:22 | XMS REPORT | Continuity of Care Document ---
:1975 Author Organization 0001 - [facility] Address [address] [place] [address] Phone Care Team Providers Name Role Phone [...] For Visit Copied on Encounter 2019 - [facility] Dec-2 [employer], Primary 7- ANTALIE. Care 9 [address] [place] [address], [address], [place], [address]. [place], [place], tel:[phone], [place] 3417 tel:[phone] [place] [address] Acute pain of FLIP HO. 4417 [facility], Walk-In right [place] [address] shoulderInjury of [address] [place] [address] right shoulder, [place], [place], Street, initial [address]. [place] encounterFall, tel:[phone] [place], [place], initial [phone], [place] encounterElevated tel:[phone] blood pressure [phone] readingSeparation of right acromioclavicular joint, initial encounter 2019 - [facility] Dec-0 [employer], Diabetes 4[address]201 JILLENE. [facility] Center 9 93 [place], [place], [address]. [address], [place] tel:[phone] tel:[phone] [place] [address] Type 1 diabetes Oct- [employer], Diabetes mellitus with VASILIY. [facility] Center hyperglycemia 9 93 [place], [place], [address]. [address], [place] tel:[phone] tel:[phone] [place] [address] Encntr for [facility] [employer], Primary general adult 2- [place]. Care medical exam w/o 9 [address] [place] [address], Street, Front findingsType 1 [facility] [place], [address]. [place], [place], with tel:[phone], [place] hyperglycemiaReco 3417 tel:[phone] veralfonso alcoholic [phone] in remissionBody mass index (BMI) 24.0-24.9, adultTobacco use 0001 - S [facility] Jeff- VILL[employer], Primary alcoholic in [place]. [address] Care remissionType 1 9 [address] [place] Upper diabetes mellitus [address], [address], Front with [place], [facility] [place], [address]. [place], [place], tel:[phone], 3417 tel:+ [phone] Family History Family Member Diagnosis Age At Onset Mother Diabetes mellitus Immunizations Vaccine Date Status Comments Immunization Unknown Payers Payer name Insurance type Covered libertarian ID Authorization(s) Zeferino Jiménez [id number] Social History Type Description Quantity Date Captured Comments Alcohol Use Details Unknown Caffeine Use Details Unknown Tobacco Use Status Unknown Smoking Status Unknown Vital Signs Date / [...] Elevated blood pressure pt will go to [facility] for pain control reading Anew insulin [...] have a yearly eye exam by an dry transfer worker.Please have a yearly foot exam.Continue your current [...]
--- OUTSIDE RECORDS SUMMARY | 2019-06-29 20:22 | XMS REPORT | Continuity of Care Document ---
:1975 Author Organization 0001 - [facility] Address [address] [place] [address] Phone Care Team Providers Name Role Phone [...] For Visit Copied on Encounter 2019 - [facility] Dec-2 [employer], Primary 3 [place]. Care [address], [address], [place], [address]. [place], [place], tel:[phone], [place] 3417 tel:[phone] [place] [address] Acute pain of FLIP HO. 4417 [facility], Walk-In right [place] [address] shoulderInjury of [address] [place] [address] right shoulder, [place], [place], Street, initial [address]. [place] encounterFall, tel:[phone] [place], [place], initial [phone], [place] encounterElevated tel:[phone] blood pressure [phone] readingSeparation of right acromioclavicular joint, initial encounter 2019 - [facility] Dec-0 [employer], Diabetes [address]. [facility] Center [address] [place], [address]. [address], [place] tel:[phone] tel:[phone] [place] [address] Type 1 diabetes Oct- [employer], Diabetes mellitus with VASILIY. [facility] Center hyperglycemia [address] [place], [address]. [address], [place] tel:[phone] tel:[phone] [place] [address] Encntr for [employer], Primary general adult 2 [place]. Care medical exam w/o [address], [address], Front findingsType 1 [facility] [place], [address]. [place], [place], with tel:[phone], [place] hyperglycemiaReco 3417 tel:[phone] veralfonso alcoholic [phone] in remissionBody mass index (BMI) 24.0-24.9, adultTobacco use 0001 - S [employer]- [employer], Primary alcoholic in [place]. [address] Care remissionType 1 [address] diabetes mellitus [address], [address], Front with [place], [facility] [place], [address]. [place], [place], tel:[phone], 3417 tel:[phone] Family History Family Member Diagnosis Age At Onset Mother Diabetes mellitus Immunizations Vaccine Date Status Comments Immunization Unknown Payers Payer name Insurance type Covered republican ID Authorization(s) Zeferino Jiménez [id number] Social History Type Description Quantity Date Captured [...] Elevated blood pressure pt will go to [facility] for pain control reading Anew insulin [...] have a yearly eye exam by an nursing service administrator.Please have a yearly foot exam.Continue your current [...]
[2019-06-29] MEDS ORDERED: Ketorolac INJ* 30 MG/ML 1 ML VIAL IM ONE (20:23)
[2019-06-29 22:12] VITALS: BP 111/86
== END 2019-06-29 22:05 | disposition home or self-care (01) ==
LOC: ED 19:17
DX: S43.004A Unspecified dislocation of right shoulder joint, initial encounter (principal); F10.129 Alcohol abuse with intoxication, unspecified; F17.210 Nicotine dependence, cigarettes, uncomplicated; M25.511 Pain in right shoulder; W19.XXXA Unspecified fall, initial encounter; Y92.9 Unspecified place or not applicable; E11.9 Type 2 diabetes mellitus without complications; Z79.4 Long term (current) use of insulin
CPT/HCPCS: 96372; 99283; J1885

== ENCOUNTER 2019-07-04 14:53 | Emergency (ER) | payer OTHER ==
[2019-07-04] MEDS ORDERED: Acetaminophen TAB* 325 MG PO ONE (14:58)
--- NOTE | 2019-07-04 15:10 | ED ---
Back Pain - HPI Summary HPI Summary: This patient is a 44 year old M presenting to [facility] by EMS with a chief complaint of right shoulder and back pain since 06/29/19. Pt report he fell when he slipped on ice coming out of his apartment. He reports at the ED they just gave him a sling and took his back brace. Pt was taking ibuprofen for the pain, and the last time he took ibuprofen was this morning. Pt report drinking alcohol and using cocaine. Pt called the ambulance. Pt has PMHx of diabetes. Medications reviewed. Allergies noted. - History of Current Complaint Chief Complaint: EDExtremityUpper Stated Complaint: SHOULDER INJURY PER EMS Hx Obtained From: Patient Onset/Duration: Gradual Onset, Lasting Weeks, Still Present Onset/Duration: Started Weeks Ago, Still Present Timing: Constant Back Pain Location: Is Diffuse Severity Initially: Severe Severity Currently: Severe Pain Intensity: 10 Pain Scale Used: 0-10 Numeric Aggravating Symptom(s): Movement Alleviating Symptom(s): Nothing Associated Signs And Symptoms: Positive: Negative - Allergies/Home Medications Allergies/Adverse Reactions: Allergies Allergy/AdvReac Type Severity Reaction Status Date / Time No Known Allergies Allergy Verified 05/12/19 11:20 Home Medications: Home Medications Insulin Lispro [Humalog Kwikpen U-200 200 units/ml 3 ml x 2 Pens] 1 unit SQ TID PC PRN #0 02/20/12 [History Confirmed 06/29/19] HYDROcodone/ACETAMIN 5-325 MG* [Barrington 5-325 TAB*] 1 tab PO Q6H PRN #12 tab MDD 4 05/12/19 [Rx Confirmed 06/29/19] Ibuprofen TAB* [Advil TAB*] 200 mg PO Q6H PRN 05/12/19 [History Confirmed ] Insulin Glargine,Hum.rec.anlog [Basaglar Kwikpen 100 inuts/ml 3 ml x 5 Pens] 38 unit SC BEDTIME 05/12/19 [History Confirmed 06/29/19] PMH/Surg Hx/FS Hx/Imm Hx Endocrine/Hematology History: Reports: Hx Diabetes Denies: Hx Anticoagulant Therapy, Hx Thyroid Disease Cardiovascular History: Denies: Hx Hypertension, Hx Pacemaker/ICD Respiratory History: Denies: Hx Asthma, Hx Chronic Obstructive Pulmonary Disease (COPD) History: Denies: Hx Renal Disease Musculoskeletal History: Reports: Other Musculoskeletal History - TRAUMA Neurological History: Reports: Other Neuro Impairments/Disorders - HEAD TRAUM Denies: Hx Dementia, Hx Seizures Psychiatric History: Denies: Hx Substance Abuse - Surgical History Surgery Procedure, Year, and Place: none - Immunization History Date of Tetanus Vaccine: 02/04/2012 Infectious Disease History: Denies: Hx Hepatitis, Hx Human Immunodeficiency Virus (HIV) - Family History Known Family History: Positive: Hypertension, Diabetes - Social History Alcohol Use: Daily Alcohol Amount: states clean for 30 days Hx Substance Use: No Substance Use Type: Reports: Marijuana Substance Use Comment - Amount & Last Used: hx of crack, unknown current use Hx Tobacco Use: Yes Smoking Status (MU): Heavy Every Day Tobacco Smoker Amount Used/How Often: 1/2 PPD Review of Systems Negative: Fever Positive: Other - back pain, shoulder pain All Other Systems Reviewed And Are Negative: Yes Physical Exam - Summary Physical Exam Summary: Constitutional: Well-developed, Well-nourished, Alert. (-) Distressed Skin: Warm, Dry HENT: Normocephalic; Atraumatic Eyes: Conjunctiva normal Neck: Musculoskeletal ROM normal neck. (-) JVD, (-) Stridor, (-) Tracheal deviation Cardio: Rhythm regular, rate normal, Heart sounds normal; Intact distal pulses; Radial pulses are 2+ and symmetric. (-) Murmur Pulmonary/Chest wall: Effort normal. (-) Respiratory distress, (-) Wheezes, (-) Rales Abd: Soft, (-) tenderness, (-) Distension, (-) Guarding, (-) Rebound Musculoskeletal: (-) Edema; Obvious deformity at R AC joint, DP/PT pulse 2+, pt moving arm with no issue. Lymph: (-) Cervical adenopathy Neuro: Alert, Oriented x3 Psych: Mood and affect Normal Triage Information Reviewed: Yes Vital Signs On Initial Exam: Initial Vital Signs Temp 98.3 F 07/04/19 15:00 Pulse 113 07/04/19 15:00 Resp 18 07/04/19 15:00 BP 128/89 07/04/19 15:00 Pulse Ox 99 07/04/19 15:00 Vital Signs Reviewed: Yes Procedures - Sedation Patient Received Moderate/Deep Sedation with Procedure: No Re-Evaluation - Re-Evaluation First Eval Re-Evaluation Time: 15:32 Comment: Discussed results and plan of care. Back Pain Course/Dx - Course Course Of Treatment: Patient is here with pain in his right shoulder. Patient' s unknown before meals joint separation that is at least 6 weeks old. Patient had an x-ray in early May which showed a in one earlier this week which showed it as well. Patient states she has no new trauma since his last visit. Patient lost his sling and was provided another one here. Patient was referred to orthopedic surgery and he did receive his discharge paperwork - Diagnoses Provider Diagnoses: Separation of AC joint Discharge ED - Sign-Out/Discharge Documenting (check all that apply): Patient Departure - Discharge Plan Condition: Stable Disposition: HOME Patient Education Materials: Acromioclavicular Separation (ED) Referrals: Mark Anthony Burris MD [Primary Care Provider] - 3 Days Lilian Bob MD [Medical Doctor] - Additional Instructions: Follow up with Dr. Bob. Take Motrin/Tylenol for pain. Return to ED for worsening symptoms. - Billing Disposition and Condition Condition: STABLE Disposition: Home - Attestation Statements Document Initiated by Julianna: Yes Documenting Scribe: Effie Newell Provider For Whom Julianna is Documenting (Include Credential): Eugnee Aguilera MD Scribe Attestation: Effie Herrera scribed for Eugene Aguilera MD on 07/04/19 at 1539. Scribe Documentation Reviewed: Yes Provider Attestation: The documentation as recorded by the Effie redman accurately reflects the service I personally performed and the decisions made by , Eugene Aguilera MD Status of Scribe Document: Viewed
[2019-07-04 15:45] VITALS: BP 143/89
== END 2019-07-04 15:44 | disposition home or self-care (01) ==
LOC: ED 14:53
DX: S43.101D Unspecified dislocation of right acromioclavicular joint, subsequent encounter (principal); W00.0XXD Fall on same level due to ice and snow, subsequent encounter; E11.9 Type 2 diabetes mellitus without complications; Z79.4 Long term (current) use of insulin; F17.200 Nicotine dependence, unspecified, uncomplicated
CPT/HCPCS: 99282; A9270-GY

== ENCOUNTER 2019-08-31 23:07 | Emergency (ER) | payer OTHER ==
[2019-08-31] MEDS ORDERED: NS 0.9% 1000 ml BAG 1,000 ML IV ONE (23:16)
[2019-08-31 23:56] LABS: ABS Basophils 0.1 10^3/ul (0-0.2); ABS Eosinophils 0.1 10^3/ul (0-0.6); ABS Lymphocytes 2.1 10^3/ul (1.0-4.8); ABS Monocytes 0.3 10^3/ul (0-0.8); Eosinophil % 1.1 %; Hematocrit 47 % (42-52); Hemoglobin 15.6 g/dL (14.0-18.0); Lymphocyte % 41.3 %; Mean Corpuscular HGB Conc 34 g/dL (31-36); Mean Corpuscular Hemoglobin 30 pg (27-31); Mean Corpuscular Volume 89 fL (80-94); Nucleated Red Blood Cells % 0.2; Platelet Count 231 10^3/uL (150-450); Red Blood Count 5.23 10^6 /uL (4.18-5.48); Red Cell Distribution Width 16 % (10-15); White Blood Count 5.1 10^3/uL (3.5-10.8)
[2019-09-01 00:18] LABS: Albumin 4.3 g/dL (3.2-5.2); Albumin/Globulin Ratio 1.4 (1-3); BUN/Creatinine Ratio 10.1 (8-20); C Reactive Protein 3.92 mg/L (<8.01); Calcium 9.2 mg/dL (8.6-10.3); EGFR African American 98.9 (>60); EGFR Non-African American 81.7 (>60); Magnesium 2.2 mg/dL (1.9-2.7); Potassium 4.7 mmol/L (3.5-5.0); Total Bilirubin 1.1 mg/dL (0.2-1.0); Total Protein 7.3 g/dL (6.4-8.9)
[2019-09-01] MEDS ORDERED: Diazepam 5 mg TAB (*) PO ONE ×2 (00:23→00:30)
[2019-09-01 00:41] LABS: Urine Benzodiazepine Screen None Detected (None Detect); Urine Opiates Screen None Detected (None Detect)
[2019-09-01 00:54] LABS: Urine Appearance Clear; Urine Bilirubin Negative (Negative); Urine Blood 1+ (Negative); Urine Color Straw; Urine Glucose 3+(>=500 mg/dL) (Negative); Urine Ketones Negative (Negative); Urine Nitrite Negative (Negative); Urine Protein Negative (Negative); Urine Specific Gravity 1.001 (1.010-1.030); Urine Urobilinogen Negative (Negative)
[2019-09-01 00:55] LABS: Urine Bacteria Absent (Absent); Urine Red Blood Cell Absent (Absent); Urine Squamous Epithelial Cell Present (Absent); Urine White Blood Cell Absent (Absent)
[2019-09-01] MEDS ORDERED: Iodixanol (CONTRAST) 320 MG/ML 100 ML SDV IV ONE (02:58)
[2019-09-01 06:23] VITALS: BP 115/91
== END 2019-09-01 06:22 | disposition home or self-care (01) ==
LOC: ED 23:07

== ENCOUNTER 2020-06-12 01:26 | Inpatient (IN) ==
[2020-06-12] MEDS ORDERED: NS 0.9% 1000 ml BAG 2,000 ML IV ONE (01:33)
[2020-06-12] MEDS ORDERED: Lorazepam PYXIS KEY PRN (01:37)
[2020-06-12] MEDS ORDERED: LORazepam 2 mg VIAL 1 ml IM ONE (01:37)
[2020-06-12] MEDS ORDERED: Lorazepam PYXIS KEY ONE (01:40)
[2020-06-12 02:22] LABS: ABS Lymphocytes 1.8 10^3/ul (1.0-4.8); ABS Monocytes 0.5 10^3/ul (0-0.8); ABS Neutrophils 3.1 10^3/ul (1.5-7.7); Eosinophil % 0.3 %; Hematocrit 50 % (42-52); Hemoglobin 15.9 g/dL (14.0-18.0); Mean Corpuscular HGB Conc 32 g/dL (31-36); Mean Corpuscular Hemoglobin 30 pg (27-31); Mean Corpuscular Volume 95 fL (80-94); Mean Platelet Volume 8.5 fL (7.4-10.4); Platelet Count 222 10^3/uL (150-450); Red Blood Count 5.24 10^6 /uL (4.18-5.48); Red Cell Distribution Width 15 % (10-15); White Blood Count 5.4 10^3/uL (3.5-10.8)
[2020-06-12 02:43] LABS: Albumin 4.6 g/dL (3.2-5.2); Albumin/Globulin Ratio 1.4 (1-3); BUN/Creatinine Ratio 13.5 (8-20); C Reactive Protein 4.82 mg/L (<8.01); EGFR African American 52.8 (>60); EGFR Non-African American 43.6 (>60); Globulin 3.3 g/dL (2-4); Total Bilirubin 0.9 mg/dL (0.2-1.0); Total Protein 7.9 g/dL (6.4-8.9)
[2020-06-12 02:54] LABS: Urine Benzodiazepine Screen None Detected (None Detect); Urine Cannabinoids Screen None Detected (None Detect); Urine Opiates Screen None Detected (None Detect)
[2020-06-12] MEDS ORDERED: Ondansetron 4 mg VIAL 2 MG/ML 2 ml VIAL IV PRN (02:55)
[2020-06-12] MEDS ORDERED: Insulin Infusion 100unit/100mL 100 UNIT/100 ML BAG IV SCH ×2 (03:00→04:00)
[2020-06-12] MEDS ORDERED: LORazepam 2 mg VIAL 1 ml IV PUSH SCH (03:00)
[2020-06-12] MEDS ORDERED: NORMOSOL-R pH 7.4 1000 mL BAG 1,000 ML IV SCH ×3 (03:09→04:00)
[2020-06-12 03:11] LABS: Urine Appearance Clear; Urine Bilirubin Negative (Negative); Urine Blood 2+ (Negative); Urine Color Yellow; Urine Glucose 3+(>=500 mg/dL) (Negative); Urine Ketones Negative (Negative); Urine Nitrite Negative (Negative); Urine Protein Negative (Negative); Urine Specific Gravity 1.021 (1.010-1.030); Urine Urobilinogen Negative (Negative)
[2020-06-12 03:14] LABS: Urine Bacteria Absent (Absent); Urine Red Blood Cell Trace(0-2/hpf) (Absent); Urine Squamous Epithelial Cell Present (Absent); Urine White Blood Cell Trace(0-5/hpf) (Absent)
[2020-06-12] MEDS ORDERED: Thiamine 100 MG/ML 2 ml VIAL (200 mg) IV ONE (03:15)
[2020-06-12 03:31] LABS: Magnesium 2.8 mg/dL (1.9-2.7)
[2020-06-12] MEDS ORDERED: Cyanocobalamin INJ 1,000 MCG/ML VIAL 1 ML VIAL IM ONE (04:02)
[2020-06-12] MEDS ORDERED: Thiamine IV 100 MG in NS 0.9% 50 ML Q24H IV ONE (04:18)
[2020-06-12] MEDS ORDERED: Dextrose 50% Syringe 50 ml 25 GM/50 ML SYRINGE IV PUSH PRN (05:08)
[2020-06-12 05:41] LABS: BUN/Creatinine Ratio 17.7 (8-20); Calcium 7.9 mg/dL (8.6-10.3); EGFR African American 84.5 (>60); EGFR Non-African American 69.9 (>60); Potassium 4.6 mmol/L (3.5-5.0)
[2020-06-12 05:45] LABS: Prolactin 24.6 ng/mL (1.0-20.0)
[2020-06-12] MEDS ORDERED: Enoxaparin 40 MG/0.4 ML SYR SUBCUT SCH (06:00)
[2020-06-12 06:47] LABS: ABS Lymphocytes 1.6 10^3/ul (1.0-4.8); ABS Monocytes 0.9 10^3/ul (0-0.8); ABS Neutrophils 5.7 10^3/ul (1.5-7.7); Hematocrit 42 % (42-52); Hemoglobin 13.5 g/dL (14.0-18.0); Lymphocyte % 19.5 %; Mean Corpuscular HGB Conc 33 g/dL (31-36); Mean Corpuscular Hemoglobin 30 pg (27-31); Mean Corpuscular Volume 93 fL (80-94); Nucleated Red Blood Cells % 0.1; Platelet Count 185 10^3/uL (150-450); Red Blood Count 4.46 10^6 /uL (4.18-5.48); Red Cell Distribution Width 15 % (10-15); White Blood Count 8.2 10^3/uL (3.5-10.8)
[2020-06-12 08:08] LABS: Creatine Kinase 2365 U/L (10-223)
[2020-06-12 08:32] LABS: BUN/Creatinine Ratio 19.2 (8-20); Calcium 7.8 mg/dL (8.6-10.3); EGFR African American 98.5 (>60); EGFR Non-African American 81.4 (>60); Potassium 4.2 mmol/L (3.5-5.0)
[2020-06-12] MEDS ORDERED: Multivitamins/Minerals TAB PO SCH (09:00)
[2020-06-12 09:45] LABS: Magnesium 2.2 mg/dL (1.9-2.7); Phosphorus 2.9 mg/dL (2.5-5.0)
[2020-06-12 10:23] LABS: CO2 Carbon Dioxide 17 mmol/L (22-32); Calcium 7.9 mg/dL (8.6-10.3); Chloride 106 mmol/L (101-111); Sodium 133 mmol/L (135-145)
[2020-06-12 10:24] LABS: Anion Gap 10 mmol/L (2-11)
[2020-06-12 10:29] LABS: BUN/Creatinine Ratio 20.2 (8-20); Blood Urea Nitrogen 20 mg/dL (6-24); EGFR African American 98.5 (>60); EGFR Non-African American 81.4 (>60); Glucose 135 mg/dL (70-100); Phosphorus 3.3 mg/dL (2.5-5.0)
[2020-06-12 13:05] LABS: BUN/Creatinine Ratio 17.6 (8-20); EGFR African American 108.5 (>60); EGFR Non-African American 89.7 (>60); Magnesium 2.2 mg/dL (1.9-2.7); Potassium 4.2 mmol/L (3.5-5.0)
[2020-06-12 14:04] VITALS: BP 104/67
[2020-06-12 15:57] LABS: Calcium 8.2 mg/dL (8.6-10.3); Potassium 4.4 mmol/L (3.5-5.0)
[2020-06-12 16:02] LABS: BUN/Creatinine Ratio 18.3 (8-20); EGFR African American 105.8 (>60); EGFR Non-African American 87.5 (>60)
== END 2020-06-12 18:50 | disposition left against medical advice (07) | DRG 133 ==
LOC: ED 01:26 → ICU 02:55 → MEDTELE 08:26
PROVIDERS: ADMIT Internal Medicine Interventional Cardiology; ATTEND Internal Medicine